=== PATIENT | male | born 1985 | race Caucasian/White ===

== ENCOUNTER 2021-04-21 15:06 | Emergency (ER) | payer BC ==
[~2021-04-21] VITALS: Ht 182.9 cm; Wt 99.8 kg
[2021-04-21] MEDS ORDERED: IBUPROFEN600 MG PO (15:25)
== END 2021-04-21 16:02 | disposition home or self-care (01) ==
LOC: ER 15:51
DX: U07.1 COVID-19 (principal); R05 Cough; R09.81 Nasal congestion; F17.200 Nicotine dependence, unspecified, uncomplicated
CPT/HCPCS: 99283